=== PATIENT | male | born 1930 | race Caucasian/White ===

== ENCOUNTER → 2016-11-27 | Outpatient (CLI) | payer OTHER | LOC: RAD 14:52 | DX: J90 Pleural effusion, not elsewhere classified (principal); R05 Cough ==

== ENCOUNTER 2016-12-04 14:10 | Inpatient (IN) | payer OTHER ==
[~2016-12-04] VITALS: Ht 175.3 cm; Wt 70.7 kg
--- NOTE | ~2016-12-04 | 2DMMODE ---
[facility] [place] [address] [place] [address] 2 D/M-MODE ECHOCARDIOGRAM Name: JARAD BASSETT Room #: 315-P [facility]#: [id number] Admission: 12/04/16 Attend Phys: Fritz Ludwig MD Discharge: Date of : 28 Date of Service: 12/05/16 1131 Report #: [id number] THIS REPORT FOR: //name// APPROVED REPORT Study performed: 12/05/2016 10:12:56 EXAM: Comprehensive 2D, Doppler, and color-flow Echocardiogram Patient Location: Bedside/Room 315 Blood Pressure: 116/67 mmHg HR: 98 bpm Other Information Study Quality: FairPoor Technically limited study due to body habitus, lung artifact, poor acoustic windows. Indications Pulmonary Embolism Hx: CAD, stent, HTN, HLP 2D Dimensions RVDd: 39.70 mm LVEF(%): 56.94 (>50%) IVSd: 13.00 (7-11mm) LVOT Diam: 20.57 (18-24mm) LVDd: 40.60 mm PWd: 11.63 (7-11mm) LVDs: 28.63 (25-40mm) Aortic Root: 34.50 mm Singh's LVEF: 56.94 % Volumes Left Atrial Volume (Systole) Single Plane 4CH: 27.68 mL Aortic Valve AoV Peak Keenan.: 1.41 m/s AO Peak Gr.: 8.00 mmHg LV Max P.89 mmHg LV Max: 0.99 m/s Mitral Valve MV PHT: 59.97 ms MV E Max Keenan.: 0.54 m/s E/A Ratio: 0.6 [facility] [place] [place] [address] 2 D/M-MODE ECHOCARDIOGRAM Name: DANYELLEJARAD Room #: 315-P [facility].#: [id number] Admission: 12/04/16 Attend Phys: Fritz Ludwig MD Discharge: Date of : 28 Date of Service: 12/05/16 1131 Report #: [id number] MV A Keenan.: 0.95 m/s MV Decel. Time: 206.80 ms Tricuspid Valve TR Peak Keenan.: 2.71 m/s RAP Estimate: 5.00 mmHg TR Peak Gr.: 29.46 mmHg RVSP: 34.00 mmHg Left Ventricle The left ventricle is normal size. There is normal LV segmental wall motion. Mild concentric left ventricular hypertrophy. Left ventricular systolic function is normal. LVEF is 60%. Grade I - abnormal relaxation pattern. Right Ventricle The right ventricle is normal size. The right ventricular systolic function is normal. Atria The left atrium size is normal. The right atrium size is normal. Aortic Valve The aortic valve is not well visualized. Aortic valve is calcified. Trace to mild aortic regurgitation. There is no aortic valvular stenosis. Mitral Valve Mitral valve leaflets are calcified. Mild mitral annular calcification. Trace mitral regurgitation. Tricuspid Valve The tricuspid valve is normal in structure. There is trace tricuspid regurgitation. The right atrial pressure is estimated at 5 mmHg. There is mild pulmonary hypertension with an estimated PAP of 34mmHg. Pulmonic Valve Pulmonic valve is not well visualized. Great Vessels The aortic root is normal in size. Ascending aorta is not well visualized. Descending aorta is not well visualized. IVC is normal in size and collapses >50% with inspiration. Pericardium There is no pericardial effusion. [facility] [address] [place] [address] 2 D/M-MODE ECHOCARDIOGRAM Name: DANYELLEJARAD Room #: 315-P [facility] ..#: [id number] Admission: 12/04/16 Attend Phys: Fritz Ludwig MD Discharge: Date of : 28 Date of Service: 12/05/16 1131 Report #: [id number] <Conclusion> The left ventricle is normal size. The aortic valve is not well visualized. Aortic valve is calcified. Trace to mild aortic regurgitation. Mitral valve leaflets are calcified. Mild mitral annular calcification. Trace mitral regurgitation. <ELECTRONICALLY SIGNED> By: Jeff Bradley MD 12/05/16 1131 1131 1131 Jeff Bradley MD /INF
--- NOTE | ~2016-12-04 | EKG ---
[address] [address] ELECTROCARDIOGRAM REPORT Name: JARAD BASSETT Room #: 315-P [facility] IN ..#: [id number] Admission: 12/04/16 Attend Phys: Fritz Ludwig MD Discharge: Date of : 28 Report #: [id number] THIS REPORT FOR: //name// [facility] ED Test Date: 2016-12-04 Test Time: 14:39:17 Pat Name: JARAD BASSETT Department: Room: 315 Gender: M [employer]: CAMRYN : 1930 Requested By: Augie Lima Order Number: [id number] MD: Darion Yancey Measurements Intervals [place] Rate: 89 P: 70 GA: 165 QRS: -59 QRSD: 107 T: 44 QT: 369 QTc: 449 Interpretive Statements Sinus rhythm Ventricular premature complex Left anterior fascicular block Probable anteroseptal infarct, old No previous ECG available for comparison Electronically Signed On 12-05-2016 13:29:34 CDT by Darion Yancey [email or web address] <ELECTRONICALLY SIGNED> By: Darion Yancey MD 12/05/16 1329 [id number] [id number] Darion Yancey MD /ANTOINE
[2016-12-04 14:11] VITALS: BP 141/76
[2016-12-04] MEDS ORDERED: LIPITOR 20 MG T20 M1 PO (14:40)
[2016-12-04] MEDS ORDERED: ASPIR 8181 MG PO (14:40)
[2016-12-04] MEDS ORDERED: CENTRUM SILVER1 EAC4 PO (14:40)
[2016-12-04] MEDS ORDERED: NORVASC10 MG PO (14:41)
[2016-12-04] MEDS ORDERED: FOSINOPRIL SODI20 MG PO (14:41)
[2016-12-04] MEDS ORDERED: NEURONTIN 300300 M1 PO (14:42)
[2016-12-04] MEDS ORDERED: METOPROLOL SUCC25 M1 PO (14:42)
[2016-12-04] MEDS ORDERED: KLOR-CON 1010 MEQ PO (14:42)
[2016-12-04] MEDS ORDERED: SENOKOT-S1 TA1 PO (14:43)
[2016-12-04 15:02] LABS: HEMATOCRIT 46.9 % (42.0-52.0); HEMOGLOBIN 15.8 gm/dL (14.0-18.0); MCH 30.8 pg (26.0-34.0); MCHC 33.7 g/dL (28.0-37.0); MCV 91.2 fL (80.0-100.0); RBC 5.15 mil/uL (4.50-6.00); RDW 13.5 % (10.5-14.5); WBC 9.9 thou/uL (4.0-11.0)
[2016-12-04 15:09] LABS: CALCIUM 9.7 mg/dL (8.5-10.1); CREATININE 0.9 mg/dL (0.6-1.3); POTASSIUM 3.8 mmol/L (3.5-5.1)
[2016-12-04 17:15] VITALS: BP 156/83
[2016-12-04 17:21] LABS: ABG SAMPLE TYPE ARTERIAL; BE(vivo) 5.4 mmol/L (-2 to +3); HCO3 28.8 mmol/L (22.0-26.0); LACTATE 1.66 mmol/L (0.5-2.0); O2(CT) 20.1 mL/dL (15.0-23.0); PCO2 38.1 mmHg (35.0-45.0); PO2 60.1 mmHg (80.0-100.0); pH 7.497 (7.360-7.450)
[2016-12-04 17:21] LABS: NT-PRO BRAIN NAT PEPTIDE 98 pg/mL (<300); TROPONIN-I < 0.04 ng/mL (<0.04-0.07)
[2016-12-04 17:22] LABS: STICK SITE L.RADIAL
[2016-12-04 19:45] VITALS: BP 134/62
[2016-12-04 23:54] VITALS: BP 116/64
[2016-12-05 03:47] VITALS: BP 116/67
[2016-12-05 04:49] LABS: ALBUMIN 2.6 g/dL (3.4-5.0); CALCIUM 8.8 mg/dL (8.5-10.1); MAGNESIUM 1.7 mg/dL (1.8-2.4); POTASSIUM 3.6 mmol/L (3.5-5.1); TOTAL BILIRUBIN 0.5 mg/dL (<0.1-1.0); TOTAL PROTEIN 6.1 g/dL (6.4-8.2)
[2016-12-05 08:00] VITALS: BP 155/88
[2016-12-05 10:39] LABS: INR 1.3; PROTIME 13.2 Seconds (9.3-11.4)
[2016-12-05 16:08] VITALS: BP 118/64
[2016-12-05 19:54] VITALS: BP 155/79
[2016-12-06 03:52] VITALS: BP 149/79
[2016-12-06 04:06] LABS: HEMATOCRIT 38.9 % (42.0-52.0); MCH 30.4 pg (26.0-34.0); MCHC 33.5 g/dL (28.0-37.0); MCV 90.7 fL (80.0-100.0); RBC 4.29 mil/uL (4.50-6.00); RDW 13.6 % (10.5-14.5); WBC 21.1 thou/uL (4.0-11.0)
[2016-12-06 04:10] LABS: HEMOGLOBIN 13.1 gm/dL (14.0-18.0); INR 1.2; PROTIME 12.3 Seconds (9.3-11.4)
[2016-12-06 04:20] LABS: CALCIUM 8.5 mg/dL (8.5-10.1); CREATININE 0.8 mg/dL (0.6-1.3); POTASSIUM 3.9 mmol/L (3.5-5.1)
[2016-12-06 08:35] VITALS: BP 156/87
[2016-12-06 20:40] VITALS: BP 153/96
[2016-12-07 04:36] LABS: INR 1.2; PROTIME 12.9 Seconds (9.3-11.4)
[2016-12-07 04:45] VITALS: BP 149/93
[2016-12-07 16:20] VITALS: BP 135/87
[2016-12-07 21:01] VITALS: BP 163/86
[2016-12-08 04:00] VITALS: BP 163/94
[2016-12-08 05:08] LABS: INR 1.5; PROTIME 15.9 Seconds (9.3-11.4)
[2016-12-08 07:35] VITALS: BP 170/93
[2016-12-08 09:14] VITALS: BP 170/93
[2016-12-08] MEDS ORDERED: ENOXAPARIN80 MG/0.1 SUBQ (11:16)
[2016-12-08] MEDS ORDERED: FLOMAX0.4 MG PO (11:16)
[2016-12-08] MEDS ORDERED: PREDNISONE 10 M10 MG PO (11:18)
[2016-12-08] MEDS ORDERED: VENTOLIN HFA 1818 GM INH (11:18)
[2016-12-08] MEDS ORDERED: COUMADIN 5 MG TA5 M1 PO (11:19)
[2016-12-08 14:03] VITALS: BP 170/93
== END 2016-12-08 15:22 | disposition home or self-care (01) | DRG 175 ==
LOC: ER 14:10 → EROBS 15:50 → 3N 15:50 → EROBS 16:52 → 3N 16:53
PROVIDERS: Emergency Medicine; Hospitalist; Nurse Practitioner
DX: I26.99 Other pulmonary embolism without acute cor pulmonale (principal); J96.01 Acute respiratory failure with hypoxia; M48.06 Spinal stenosis, lumbar region; J09.X2 Influenza due to identified novel influenza A virus with other respiratory manifestations; I10 Essential (primary) hypertension; K59.09 Other constipation; M19.90 Unspecified osteoarthritis, unspecified site; K21.9 Gastro-esophageal reflux disease without esophagitis; E78.5 Hyperlipidemia, unspecified; G89.29 Other chronic pain; R26.81 Unsteadiness on feet; R33.9 Retention of urine, unspecified; I25.10 Atherosclerotic heart disease of native coronary artery without angina pectoris; Z95.5 Presence of coronary angioplasty implant and graft; Z87.442 Personal history of urinary calculi; Z90.49 Acquired absence of other specified parts of digestive tract; I25.2 Old myocardial infarction; Z98.42 Cataract extraction status, left eye; Z98.41 Cataract extraction status, right eye; Z88.0 Allergy status to penicillin; Z88.2 Allergy status to sulfonamides; Z79.899 Other long term (current) drug therapy; Z79.82 Long term (current) use of aspirin
CPT/HCPCS: 10094; 10096; 50455